=== PATIENT | male | born 1970 | race Asian ===

== ENCOUNTER 2022-03-18 13:09 | Emergency (ER) | payer OTHER ==
[~2022-03-18] VITALS: Ht 165.1 cm; Wt 64.9 kg
--- NOTE | 2022-03-18 14:08 | NUR ---
DR OCHOA AT BEDSIDE
[2022-03-18] MEDS ORDERED: NAPR500T6 PO (14:53)
--- NOTE | 2022-03-18 16:14 | NUR ---
Patient discharged to home with Norbert Guzman in stable condition. Written and verbal after care instructions given. Patient and friend verbalizes understanding of instruction.
[2022-03-18 16:24] VITALS: BP 142/78
== END 2022-03-18 16:24 | disposition home or self-care (01) ==
LOC: ER 13:36
DX: S20.219A Contusion of unspecified front wall of thorax, initial encounter (principal); S80.02XA Contusion of left knee, initial encounter; Z79.1 Long term (current) use of non-steroidal anti-inflammatories (NSAID); V49.9XXA Car occupant (driver) (passenger) injured in unspecified traffic accident, initial encounter; Y93.89 Activity, other specified; Y92.89 Other specified places as the place of occurrence of the external cause; Y99.8 Other external cause status
CPT/HCPCS: 71045-TC; 73564-TC